=== PATIENT | female | born 1975 | race Caucasian/White ===

== ENCOUNTER → 2019-09-14 13:00 | Outpatient (CLI) | payer BC, SELFPAY ==
--- NOTE | ~2019-09-14 | XR_ITS ---
EXAMINATION: XR chest 2V EXAM DATE: 09/14/2019 13:30 INDICATION: Cough, fever. TECHNIQUE: Frontal and lateral projections of the chest obtained and reviewed. Comparison is made to prior examination from 09/25/2008. FINDINGS: The lungs are clear. There are no pleural effusions. The cardiomediastinal silhouette is within normal limits. There is no pneumothorax suspected. The bones and soft tissues are unremarkab le. IMPRESSION: No acute cardiopulmonary findings. Reviewed, dictated and finalized at location A. RAMMING COORDINATOR
== END ==
PROVIDERS: PCP Physician Assistant; Visit Provider Physician Assistant
DX: J22 Unspecified acute lower respiratory infection (principal)
CPT/HCPCS: 71046

== ENCOUNTER 2020-10-26 09:09 | Outpatient (CLI) | payer BC, SELFPAY ==
--- NOTE | ~2020-10-26 | MM_ITS ---
EXAMINATION: MM screening [facility] BI w lupillo HISTORY: Screening mammogram TECHNIQUE: Craniocaudal and mediolateral oblique 3-D tomosynthesis images were obtained and synthetic 2-D images were generated. CAD analysis was submitted and interpreted. COMPARISON: 11/27/2018, 10/23/2017, 10/13/2016 BREAST PARENCHYMAL COMPOSITION: The breasts are almost entirely fatty. FINDINGS: There is no evidence of suspicious mass, calcification, or architectural distortion to sugg est malignancy in either breast. There has been no suspicious interval change. IMPRESSION: 1. No mammographic evidence of malignancy. 2. Recommend routine screening mammography in one year. BI-RADS Category 1: Negative Reviewed, dictated and finalized at location A.
== END 2020-10-26 09:10 | disposition home or self-care (01) ==
LOC: ANHIMG 09:11
PROVIDERS: PCP Family Medicine; Visit Provider Nurse Practitioner
DX: Z12.31 Encounter for screening mammogram for malignant neoplasm of breast (principal)
CPT/HCPCS: 77063; 77067

== ENCOUNTER 2021-06-06 14:48 | Outpatient (RCR) | payer BC, SELFPAY ==
[2021-06-06 15:03] VITALS: BMI 34.7
[2021-06-06 15:08] VITALS: BMI 34.7
== END 2021-09-02 14:45 | disposition home or self-care (01) ==
LOC: ANHDMC 14:48
PROVIDERS: PCP Family Medicine; Visit Provider Physician Assistant
DX: E11.65 Type 2 diabetes mellitus with hyperglycemia (principal); Z71.3 Dietary counseling and surveillance
CPT/HCPCS: 97802

== ENCOUNTER 2021-07-25 08:02 | Outpatient (CLI) | payer BC, SELFPAY ==
--- NOTE | ~2021-07-25 | US_ITS ---
EXAMINATION: US thyroid EXAM DATE: 07/25/2021 08:43 INDICATION: Family history of thyroid cancer. TECHNIQUE: Multiple grayscale and Doppler images of the thyroid were obtained (by a technologist who performed the scan) and subsequently reviewed. Individual nodules and recommendations may be reporte d in accordance with TI-RADS system as designated by the 2017 ACR White Paper TI-RADS committee. The re is no prior study for comparison. FINDINGS: Right thyroid lobe measures 4.6 x 1.2 x 1.8 cm, the left measuring 4.5 x 1.0 x 1.3 cm. These dimensio ns are within normal size limits. Mildly heterogeneous thyroid parenchyma, several small thyroid cyst s. No solid nodule or follow-up indicated. IMPRESSION: 1. Unremarkable thyroid ultrasound exam. Reviewed, dictated and finalized at location A. ENGINEERING SUPERVISOR
== END 2021-07-25 08:03 | disposition home or self-care (01) ==
LOC: ANHIMG 08:06
PROVIDERS: PCP Family Medicine; Visit Provider Nurse Practitioner
DX: E04.9 Nontoxic goiter, unspecified (principal); Z80.8 Family history of malignant neoplasm of other organs or systems
CPT/HCPCS: 76536

== ENCOUNTER 2022-02-12 09:15 | Outpatient (CLI) | payer BC, SELFPAY ==
--- NOTE | ~2022-02-12 | MM_ITS ---
EXAMINATION: MM screening [facility] BI w lupillo HISTORY: Screening TECHNIQUE: Craniocaudal and mediolateral oblique 3-D tomosynthesis images were obtained and synthetic 2-D images were generated. CAD analysis was submitted and interpreted. COMPARISON: Comparison to multiple prior studies sequentially, with oldest reviewed study dated 08/24. BREAST PARENCHYMAL COMPOSITION: Breast composed of scattered areas of fibroglandular density FINDINGS: There is no evidence of suspicious mass, calcification, or architectural distortion to sugg est malignancy in either breast. There has been no suspicious interval change. IMPRESSION: 1. No mammographic evidence of malignancy. 2. Recommend routine screening mammography in one year. BI-RADS Category 1: Negative Reviewed, dictated and finalized at location L.
== END 2022-02-12 09:16 | disposition home or self-care (01) ==
LOC: ANHIMG 09:16
PROVIDERS: PCP Family Medicine; Visit Provider Nurse Practitioner
DX: Z12.31 Encounter for screening mammogram for malignant neoplasm of breast (principal)
CPT/HCPCS: 77063; 77067

== ENCOUNTER 2022-03-14 06:59 | Outpatient (CLI) | payer BC, SELFPAY ==
--- NOTE | ~2022-03-14 | XR_ITS ---
EXAMINATION: XR chest 2V 03/14/2022 08:01 INDICATION: Cough. Covid. Shortness of breath. PROCEDURE: 2 view chest COMPARISON: 09/14/2019 FINDINGS: The lungs are clear. The cardiomediastinal silhouette is within normal limits. There are no pleural effusions. There is no pneumothorax suspected. IMPRESSION: 1: NO ACUTE CARDIOPULMONARY DISEASE. Reviewed, dictated and finalized at location B.
== END 2022-03-14 07:00 | disposition home or self-care (01) ==
PROVIDERS: PCP Family Medicine; Visit Provider Physician Assistant
DX: R05.9 Cough, unspecified (principal)
CPT/HCPCS: 71046

== ENCOUNTER → 2022-06-10 08:53 | Outpatient (CLI) | payer BC, SELFPAY ==
--- NOTE | ~2022-06-10 | CT_ITS ---
EXAMINATION: CT sinus wo con DATE: 06/10/2022 09:09 INDICATION: Chronic sinusitis. Persistent cough. TECHNIQUE: Computed tomography (CT) of the paranasal sinuses was performed without contrast. Iterativ e reconstruction technique was employed. Exam dose: 275.58 mGy-cm total exam DLP. COMPARISON: 03/05/2006 CT sinuses FINDINGS: There is leftward bowing of the nasal septum. Intralamellar cell of both middle nasal turbinates. Moderate asymmetric soft tissue swelling of the l eft middle and inferior nasal turbinates compared to the right side. The ostiomeatal units are patent bilaterally. The frontal sinuses and ethmoid air cells are normally developed and aerated. The right maxillary sin us is clear as well. Slight mucoperiosteal thickening along the lower medial wall of the left maxillary sinus. Slight mucoperiosteal thickening along the anterior medial aspect of left sphenoid sinus. Prominent m ucoperiosteal thickening of the mid and lower aspect of the right sphenoid sinus. The mastoid air cells are well-developed and aerated bilaterally. Middle and inner ear apparatus appear normal bilaterally. IMPRESSION: [Leftward bowing of nasal septum Intralamellar cell of both middle nasal turbinates Minimal mucoperiosteal thickening of the left maxillary and left sphenoid sinuses and moderately prom inent mucoperiosteal thickening of the right sphenoid sinus The remaining paranasal sinuses and the ostiomeatal units and mastoid air cells are well-developed an d aerated Reviewed, dictated and finalized at Location A. Reviewed, dictated and finalized at location A. STRIAL MAINTENANCE INSTRUCTOR IMPRESSION: [Leftward bowing of nasal septum Intralamellar cell of both middle nasal turbinates Minimal mucoperiosteal thickening of the left maxillary and left sphenoid sinus es and moderately prominent mucoperiosteal thickening of the right sphenoid sin us The remaining paranasal sinuses and the ostiomeatal units and mastoid air cells are well-developed and aerated
== END ==
PROVIDERS: PCP Physician Assistant; Visit Provider Physician Assistant
DX: J32.9 Chronic sinusitis, unspecified (principal); J34.2 Deviated nasal septum
CPT/HCPCS: 70486

== ENCOUNTER → 2023-06-08 13:43 | Outpatient (CLI) | payer BC, SELFPAY ==
--- NOTE | ~2023-06-08 | MM_ITS ---
EXAMINATION: MM screening [facility] BI w lupillo HISTORY: Screening mammogram TECHNIQUE: Craniocaudal and mediolateral oblique 3-D tomosynthesis images were obtained and synthetic 2-D images were generated. CAD analysis was submitted and interpreted. COMPARISON: 02/12/2022, 10/26/2020, 11/27/2018 BREAST PARENCHYMAL COMPOSITION: There are scattered areas of fibroglandular density. FINDINGS: No suspicious mass, calcification, or architectural distortion are identified in either tiffany ast to suggest malignancy. There has been no suspicious interval change. IMPRESSION: 1. No mammographic evidence of malignancy. 2. Recommend routine screening mammography in one year. BI-RADS Category 1: Negative Reviewed, dictated and finalized at location A. YARN SORTER
== END ==
PROVIDERS: PCP Nurse Practitioner; Visit Provider Nurse Practitioner
DX: Z12.31 Encounter for screening mammogram for malignant neoplasm of breast (principal)
CPT/HCPCS: 77063; 77067

== ENCOUNTER 2024-06-16 15:57 | Outpatient (CLI) | payer BC, SELFPAY ==
--- NOTE | ~2024-06-16 | MM_ITS ---
EXAMINATION: MM screening [facility] BI w lupillo HISTORY: Screening mammogram TECHNIQUE: Craniocaudal and mediolateral oblique 3-D tomosynthesis images were obtained and synthetic 2-D images were generated. CAD analysis was submitted and interpreted. COMPARISON: 06/08/2023, 02/12/2022, 10/26/2020 BREAST PARENCHYMAL COMPOSITION:Not Dense. There are scattered areas of fibroglandular density. FINDINGS: No suspicious mass, calcification, or architectural distortion are identified in either tiffany ast to suggest malignancy. There has been no suspicious interval change. IMPRESSION: No mammographic evidence of malignancy. Recommend routine screening mammography in one year. BI-RADS Category 1: Negative Reviewed, dictated and finalized at location . L FENCE ERECTOR
== END 2024-06-16 15:58 | disposition home or self-care (01) ==
PROVIDERS: PCP Family Medicine; Visit Provider Nurse Practitioner
DX: Z12.31 Encounter for screening mammogram for malignant neoplasm of breast (principal)
CPT/HCPCS: 77063; 77067

== ENCOUNTER 2024-09-15 16:42 | Outpatient (CLI) | payer BC, SELFPAY ==
--- NOTE | ~2024-09-15 | XR_ITS ---
EXAMINATION: XR chest 2V 09/15/2024 16:55 INDICATION: Dyspnea PROCEDURE: 2 view chest COMPARISON: 03/14/2022 FINDINGS: The lungs are clear. The cardiomediastinal silhouette is within normal limits. There are no pleural effusions. There is no pneumothorax suspected. IMPRESSION: 1: NO ACUTE CARDIOPULMONARY DISEASE. Reviewed, dictated and finalized at location B. ARCHITECT
--- OUTSIDE RECORDS SUMMARY | 2024-09-15 16:49 | XMS_ITS | Referral Summary ---
Author Organization [facility] Address [address] [place] [address] Care Team Providers Care Information Security Director Name Role Phone Low Kaplan MD Primary Care Provider [phone] Source Comments [facility],non-owned Affiliates and Associated Physician Practices is amultiple site organization consisting of ambulatory clinics and hospital sitesin [place], [place]. This disclosure is being madepursuant to the Care Everywhere program and may not contain all information available regarding this patient. Last updated 18.[facility] Allergies Active Allergy Reactions Criticality Noted Date Comments Augmentin 01/24/2016 rash Penicillins 01/15/2016 Noted on allergy testing Sulfa Drugs Dizziness 11/08/2017 Medications * Be aware that medications may not be up to date on this document. Alwaysverify current medications with the patient. Medication Sig Dispensed Refills Start Date End Date Status cetirizine (ZYRTEC) 10 MG tablet Take 1 Tab by mouth once daily Active chlorthalidone (HYGROTON) 50 MG tablet Take 50 mg by mouth once daily 11/10/2015 Active EPINEPHrine (EPIPEN) 0.3 MG/0.3ML auto-injector pen 10/15/2015 Active fluticasone propionate (FLONASE) 50 MCG/ACT nasal spray [place] into the nose Active irbesartan (AVAPRO) 75 MG tablet Take 300 mg by mouth once daily Active norethindrone-ethin yl estradiol (JUNEL 08/15) 1-20 MG-MCG tablet Take 1 Tab by mouth once daily 11/30/2015 Active omeprazole (PRILOSEC) 40 MG capsule Take 40 mg by mouth once daily Reported on 07/22/2016 11/08/2015 Active Probiotic Product (ACIDOPHILUS/GOAT MILK) CAPS Take 1 Cap by mouth once daily Active Vitamin D3 (CHOLECALCIFEROL) 2000 UNITS capsule Take 2,000 Units by mouth once daily Active Ascorbic Acid (VITAMIN C ADULT GUMMIES) 125 MG CHEW Take 2 Tabs by mouth once daily Active Multiple Vitamins-Iron (MULTIVITAMIN/IRON PO) Reported on 11/03/2016 Active Olopatadine HCl 0.7 % Reported on 11/03/2016 Active cyanocobalamin (VITAMIN B-12) 100 MCG tablet Take 100 mcg by mouth once daily Active Lancets Misc. (ACCU-CHEK FASTCLIX LANCET) KIT Use 1 Each as directed 1 Kit 1 11/07/2016 Active Additional Information Patient not taking.Reported on 09/11/2019 blood glucose (ACCU-CHEK CAITY PLUS) test strip Use 1 Strip twice daily, before 1 meal & at bedtime. 50 Strip 1 11/07/2016 Active metFORMIN ER 24hr (GLUCOPHAGE XR) 500 MG tablet 11/13/2016 Active LOSARTAN POTASSIUM PO Active Active Problems Problem Noted Date Diagnosed Date Rectovaginal fistula 01/15/2016 Immunizations Name Administration Dates Next Due INFLUENZA VACCINE 05/04/2018 Social History Tobacco Use Types Packs/Day Years Used Date Smoking Tobacco: Never Smokeless Tobacco: Never Tobacco Cessation:Counseling Given: Yes Alcohol Use Standard Drinks/Week Comments Yes 0 (1 standard drink = 0.6 oz pur e alcohol) seldom Sex and Gender Information Value Date Recorded Sex Assigned at Not on file Gender Identity Not on file Sexual Orientation Not on file Last Filed Vital Signs Vital Sign Reading Time Taken Comments Blood Pressure 128/80 09/11/2019 10:38 AM PRODUCE WRAPPER Pulse 111 09/11/2019 10:38 AM PRODUCE WRAPPER Temperature 37.6 C (99.7 F) 09/11/2019 10:38 AM PRODUCE WRAPPER Respiratory Rate 16 09/11/2019 10:38 AM PRODUCE WRAPPER Oxygen Saturation 98% 09/11/2019 10:38 AM PRODUCE WRAPPER Inhaled Oxygen Concentration - - Weight 113.9 kg (251 lb) 09/11/2019 10:38 AM PRODUCE WRAPPER Height 172.7 cm (5' 8 ) 09/11/2019 10:38 AM PRODUCE WRAPPER Body Mass Index 38.16 09/11/2019 10:38 AM PRODUCE WRAPPER Functional Status Functional Status Response Date of Assess ment Is person deaf or have serious hearing difficult y? No 11/06/2016 Is person blind or have serious difficulty seein g? No 11/06/2016 Does person have serious dif ficulty walking/climbing stairs? No 11/06/2016 Does person have difficulty dressing/bathing? No 11/06/2016 Does person have difficulty doing errands alone? No 11/06/2016 Cognitive Status Response Date of Assessm ent Does person have difficulty concentrating/remembering/making decisions? No 11/06/2016 Plan of Treatment Not on file Procedures Procedure Name Priority Date/Time Associated Diagnosis Comments HEMOGLOBIN A1C Routine 11/07/2016 5:42 AM CDT Rectovaginal fistula from Last 3 Months or Most Recently Relevant to Health Maintenance Results * (ABNORMAL) HEMOGLOBIN A1C (11/07/2016 5:42 AM CDT) Hemoglobin A1c 6.4(H) 4.2 - 6.3 % 11/07/2016 6:52 AM CDT [facility] Estimated Average Glucose 137 mg/dL 11/07/2016 6:52 AM CDT [facility] Whole Blood BLOOD SPECIMEN WITH EDTA / Unknown Lab Venipuncture / Unknown 11/07/2016 5:42 AM CDT 11/07/2016 6:22 AM CDT Munir Chilel MD LAB - CHEMISTRY [facility] Organization Address City/State/[facility] Co de Phone Number [facility] [address] [place] [address] from Last 3 Months or Most Recently Relevant to Health Maintenance Advance Directives * Full Code (Latest Code Status on File) Date Activated Date Inactivated Comments 11/06/2016 2:37 PM 11/07/2016 4:42 PM * Full Code Date Activated Date Inactivated Comments 07/24/2016 3:34 PM 07/25/2016 5:36 PM Care Teams Information Security Director Relationship Specialty Start Date End Date Low Kaplan MD [address] [place] [address] PCP - General Family Medicine 01/23/16
--- OUTSIDE RECORDS SUMMARY | 2024-09-15 16:49 | XMS_ITS | Clinical Summary ---
Author Organization [facility] Address [address] [place] [address] Care Team Providers Care Field Artillery Senior Sergeant Name Role Phone Low Kaplan MD Primary Care Provider [phone] Source Comments [facility],non-owned Affiliates and Associated Physician Practices is amultiple site organization consisting of ambulatory clinics and hospital sitesin [place], [place], [place] and [place]. This disclosure is being madepursuant to the Care Everywhere program and may not contain all information available regarding this patient. Last updated 18.[facility] Allergies Active Allergy Reactions Criticality Noted Date [...] fluticasone propionate (FLONASE) 50 MCG/ACT nasal spray [place] [address] [place] into the nose Active irbesartan (AVAPRO) 75 [...] Administration Dates Next Due INFLUENZA VACCINE 05/04/2018 Family History Medical History Relation Name Comments Diabetes Other 1 Hypertension Other 2 Endometriosis Other 3 Depression Other 4 Relation Name Status Comments Other 1 Other 2 Other 3 Other 4 Social History Tobacco Use Types Packs/Day Years [...] Comments Blood Pressure 128/80 09/11/2019 10:38 AM REELING MACHINE SETUP OPERATOR Pulse 111 09/11/2019 10:38 AM REELING MACHINE SETUP OPERATOR Temperature 37.6 C (99.7 F) 09/11/2019 10:38 AM REELING MACHINE SETUP OPERATOR Respiratory Rate 16 09/11/2019 10:38 AM REELING MACHINE SETUP OPERATOR Oxygen Saturation 98% 09/11/2019 10:38 AM REELING MACHINE SETUP OPERATOR Inhaled Oxygen Concentration - - Weight 113.9 kg (251 lb) 09/11/2019 10:38 AM REELING MACHINE SETUP OPERATOR Height 172.7 cm (5' 8 ) 09/11/2019 10:38 AM REELING MACHINE SETUP OPERATOR Body Mass Index 38.16 09/11/2019 10:38 AM REELING MACHINE SETUP OPERATOR Plan of Treatment Health Maintenance Due Date Last Done Comments COLOGUARD (AGES 45-75) - COLON CA SCREENING 1975 COLON MONITORING 1975 COLONOSCOPY - COLON CA SCREENING 1975 CT COLONOGRAPHY - COLON CA SCREENING 1975 Colorectal Cancer Screening 1975 FIT - COLON CA SCREENING 1975 FLEX SIG - COLON CA SCREENING 1975 LIPID TESTING 1975 MAMMOGRAM 1975 PAP SMEAR 1975 HIV SCREENING 1990 HEPATITIS C SCREENING 04/20/1993 DTAP/TDAP/TD VACCINES (1 - Tdap) 1994 HEPATITIS B VACCINE (1 of 3 - 19+ 3-dose series) 1994 SCREENING FOR DIABETES 11/08/2019 7, 11/07/2016, 11/07/2016, Additional history exists COVID-19 VACCINE ( - 2023- season) 2024 INFLUENZA VACCINE (#1) 2024 8, 05/04/2017, 05/07/2016, Additional history exists DEPRESSION SCREENING 07/27/2024 ZOSTER VACCINE (1 of 2) 2025 HIB VACCINE Aged Out No longer eligi ble based on patient's age to complete this topic HPV VACCINE Aged Out No longer eligi ble based on patient's age to complete this topic MENINGOCOCCAL (Group B) VACCINE Aged Out No longer eligible based on patient's age to complete this topic MENINGOCOCCAL VACCINE Aged Out No bi becky eligible based on patient's age to complete this topic PNEUMOCOCCAL VACCINE Aged Out No long er eligible based on patient's age to complete this topic Procedures Procedure Name Priority Date/Time Associated Diagnosis Comments HEMOGLOBIN A1C Routine 11/07/2016 5:42 AM CDT Rectovaginal fistula from Last 3 Months or Most Recently Relevant to Health Maintenance Results * (ABNORMAL) HEMOGLOBIN A1C (11/07/2016 5:42 AM CDT) Hemoglobin A1c 6.4(H) 4.2 - 6.3 % 11/07/2016 6:52 AM CDT [facility] Estimated Average Glucose 137 mg/dL 11/07/2016 6:52 AM CDT [facility] Whole Blood BLOOD SPECIMEN WITH EDTA / Unknown Lab Venipuncture / Unknown 11/07/2016 5:42 AM CDT 11/07/2016 6:22 AM CDT Munir Chilel MD LAB - CHEMISTRY JULIANNE LOVE [facility] [address] [place] [address] from Last 3 Months or Most Recently Relevant to Health Maintenance Advance Directives * Full Code (Latest Code Status on File) Date Activated Date Inactivated Comments 11/06/2016 2:37 PM 11/07/2016 4:42 PM * Full Code Date Activated Date Inactivated Comments 07/24/2016 3:34 PM 07/25/2016 5:36 PM Care Teams Field Artillery Senior Sergeant Relationship Specialty Start Date End Date Low Kaplan MD [address] [place] [address] PCP - General Family Medicine 01/23/16
--- OUTSIDE RECORDS SUMMARY | 2024-09-15 16:49 | XMS_ITS ---
Author Organization [facility] Address [address] [place] [address] Care Team Providers Care Sheriff Deputy Name Role Phone Umm Burton Primary Care Provider Lucy Ang Unavailable [phone] Vinod Munoz [phone] REASON FOR VISIT SCIT (Aeroallergen) Encounters Encounter Location Date Provider Diagnosis [facility] [address] [place] [address] 09/13/2024 Vinod Munoz Plan Of Treatment Next Appt Details Provider Name:Vinod Munoz , 09/19/2024 04:40:00 PM, [address], [place], [address], Provider Name:Vinod Munoz , 09/27/2024 04:40:00 PM, [address], [place], [address], Provider Name:Cuoc liao, 01/12/2025 10:00:00 AM, [address], [place], [address], Progress Notes * Umm WILKERSON SDOB:1975 (49 yo F)Acc No.[id number]:09/13/2024 SCIT-Aeroallergen Patient: Umm HOPSON Provider: Juan Munoz MD :1975 A ge:49 Y S ex:Female Date:09/13/2024 Address:[facility] [address], [address] [phone] Pcp:Umm Burton Subjective: * Chief Complaints: * 1 . SCIT (Aeroallergen). * Medical History: Objective: * Vitals: Assessment: Plan: * Treatment: * Billing Information: * Visit Code: * Procedure Codes: * Electronic signature of Jaime Munoz MD, FAAAAI on 09/15/2024 at 04:49 PM BUSINESS ADVISOR Sign off status: Pending * Provider: Juan Munoz MD Date: 09/13/2024 Generated for Belia hernandez/Luis/Esteritting on: 09/15/2024 04:49 PM BUSINESS ADVISOR
--- OUTSIDE RECORDS SUMMARY | 2024-09-15 16:49 | XMS_ITS | Patient Health Summary ---
Author Organization [facility] Address [address] [place] [address] Care Team Providers Care Medical Claims Processor Name Role Phone Low Kaplan MD Primary Care Provider [phone] Note from [facility],non-owned Affiliates and Associated Physician Practices is amultiple site organization consisting of ambulatory clinics and hospital sitesin [place], [place], [place] and [place]. This disclosure is being madepursuant to the Care Everywhere program and may not contain all information available regarding this patient. Last updated 18.[facility] Allergies * Augmentin(rash) * Penicillins(Noted on allergy testing) * Sulfa Drugs(Dizziness) Medications * Be aware that medications may not be up to date on this document. Alwaysverify current medications with the patient. * cetirizine (ZYRTEC) 10 MG tablet Take 1 Tab by mouth once daily * chlorthalidone (HYGROTON) 50 MG tablet(Started 11/10/2015) Take 50 mg by mouth once daily * EPINEPHrine (EPIPEN) 0.3 MG/0.3ML auto-injector pen(Started 10/15/2015) * fluticasone propionate (FLONASE) 50 MCG/ACT nasal spray [place] 1 [place] into the nose * irbesartan (AVAPRO) 75 MG tablet Take 300 mg by mouth once daily * norethindrone-ethinyl estradiol (JUNEL 08/15) 1-20 MG-MCG tablet(Started 11/30/2015) Take 1 Tab by mouth once daily * omeprazole (PRILOSEC) 40 MG capsule(Started 11/08/2015) Take 40 mg by mouth once daily Reported on 07/22/2016 * Probiotic Product (ACIDOPHILUS/GOAT MILK) CAPS Take 1 Cap by mouth once daily * Vitamin D3 (CHOLECALCIFEROL) 2000 UNITS capsule Take 2,000 Units by mouth once daily * Ascorbic Acid (VITAMIN C ADULT GUMMIES) 125 MG CHEW Take 2 Tabs by mouth once daily * Multiple Vitamins-Iron (MULTIVITAMIN/IRON PO) Reported on 11/03/2016 * Olopatadine HCl 0.7 % Reported on 11/03/2016 * cyanocobalamin (VITAMIN B-12) 100 MCG tablet Take 100 mcg by mouth once daily * Lancets Misc. (ACCU-CHEK FASTCLIX LANCET) KIT(Started 11/07/2016) Use 1 Each as directed 1 refill remaining * blood glucose (ACCU-CHEK CAITY PLUS) test strip(Started 11/07/2016) Use 1 Strip twice daily, before 1 meal & at bedtime. 1 refill remaining * metFORMIN ER 24hr (GLUCOPHAGE XR) 500 MG tablet(Started 11/13/2016) * LOSARTAN POTASSIUM PO Active Problems Problem Noted Date Diagnosed Date Rectovaginal fistula 01/15/2016 Immunizations * INFLUENZA VACCINE(Given 05/04/2018) Social History Tobacco Use Types Packs/Day Years [...] Comments Blood Pressure 128/80 09/11/2019 10:38 AM DIRECTOR OF ANALYTICAL DEVELOPMENT Pulse 111 09/11/2019 10:38 AM DIRECTOR OF ANALYTICAL DEVELOPMENT Temperature 37.6 C (99.7 F) 09/11/2019 10:38 AM DIRECTOR OF ANALYTICAL DEVELOPMENT Respiratory Rate 16 09/11/2019 10:38 AM DIRECTOR OF ANALYTICAL DEVELOPMENT Oxygen Saturation 98% 09/11/2019 10:38 AM DIRECTOR OF ANALYTICAL DEVELOPMENT Inhaled Oxygen Concentration - - Weight 113.9 kg (251 lb) 09/11/2019 10:38 AM DIRECTOR OF ANALYTICAL DEVELOPMENT Height 172.7 cm (5' 8 ) 09/11/2019 10:38 AM DIRECTOR OF ANALYTICAL DEVELOPMENT Body Mass Index 38.16 09/11/2019 10:38 AM DIRECTOR OF ANALYTICAL DEVELOPMENT Procedures * STREP A SCREEN - POINT OF CARE (AMB) STL(Performed 09/11/2019) Performed for Influenza A * INFLUENZA A+B - POINT OF CARE (AMB)(Performed 09/11/2019) Performed for Influenza A * STREP A SCREEN - POINT OF CARE (AMB) STL(Performed 11/08/2017) Performed for Strep throat * CULTURE AEROBIC(Performed 11/24/2016) * CARDIAC RHYTHM STRIP ORDER(Performed 11/11/2016) * GLUCOSE - POINT OF CARE(Performed 11/07/2016) * URINALYSIS REFLEX MICROSCOPIC REFLEX CULTURE(Performed 11/07/2016) Performed for Creatinine elevation * CULTURE URINE(Performed 11/07/2016) Performed for Creatinine elevation * GLUCOSE - POINT OF CARE(Performed 11/07/2016) * ENDOTRACHEAL TUBE NOTE(Performed 11/07/2016) * BASIC METABOLIC PANEL (CALCIUM TOTAL)(Performed 11/07/2016) Performed for Creatinine elevation * HEMOGLOBIN A1C(Performed 11/07/2016) Performed for Rectovaginal fistula * BASIC METABOLIC PANEL (CALCIUM TOTAL)(Performed 11/06/2016) Performed for Hyperglycemia * GLUCOSE - POINT OF CARE(Performed 11/06/2016) * GLUCOSE - POINT OF CARE(Performed 11/06/2016) * GLUCOSE - POINT OF CARE(Performed 11/06/2016) * GLUCOSE - POINT OF CARE(Performed 11/06/2016) * PATHOLOGY TISSUE EXAM (STL)(Performed 11/06/2016) Performed for Rectovaginal fistula * REPAIR RECTOVAGINAL FISTULA(Performed 11/06/2016) Performed for Rectovaginal fistula * GLUCOSE - POINT OF CARE(Performed 11/06/2016) * CBC W/O DIFFERENTIAL(Performed 11/06/2016) Performed for Preoperative examination * HCG URINE QUALITATIVE - POINT OF CARE(Performed 11/06/2016) Performed for Preoperative examination * CBC W AUTO DIFFERENTIAL(Performed 10/13/2016) * HEMOGLOBIN A1C(Performed 10/13/2016) * BASIC METABOLIC PANEL (CALCIUM TOTAL)(Performed 10/13/2016) * CARDIAC RHYTHM STRIP ORDER(Performed 07/26/2016) * GENTAMICIN LEVEL RANDOM(Performed 07/25/2016) * ENDOTRACHEAL TUBE NOTE(Performed 07/24/2016) * PATHOLOGY TISSUE EXAM (STL)(Performed 07/24/2016) Performed for Rectovaginal fistula * REPAIR RECTOVAGINAL FISTULA(Performed 07/24/2016) Performed for Rectovaginal fistula * CBC W/O DIFFERENTIAL(Performed 07/24/2016) Performed for Pre-op testing * HCG URINE QUALITATIVE - POINT OF CARE(Performed 07/24/2016) * PATHOLOGY/GENETICS HISTORICAL-ONBASE(Performed 07/24/2016) * CBC W/O DIFFERENTIAL(Performed 07/15/2016) * CARDIAC RHYTHM STRIP ORDER(Performed 01/31/2016) * LAB RESULTS ORDER(Performed 01/31/2016) * PATHOLOGY TISSUE EXAM (STL)(Performed 01/24/2016) Performed for Rectovaginal fistula * REPAIR RECTOVAGINAL FISTULA(Performed 01/24/2016) Performed for Rectovaginal fistula * EXAM UNDER ANESTHESIA(Performed 01/24/2016) Performed for Rectovaginal fistula * CBC W/O DIFFERENTIAL(Performed 01/24/2016) Performed for Preop examination * HCG URINE QUALITATIVE - POINT OF CARE(Performed 01/24/2016) * PATHOLOGY/GENETICS HISTORICAL-ONBASE(Performed 01/24/2016) * LAB HISTORICAL RESULTS-ONBASE(Performed 01/24/2016) * CBC W AUTO DIFFERENTIAL(Performed 01/01/2016) Results * STREP A SCREEN - POINT OF CARE (AMB) STL (09/11/2019) Only the most recent of2 resultswithin the time period is included. Strep A Rapid POCT Negative Negative Strep A Internal Control Present Lot # [id number] Expiration Date 12/24/2020 Throat ENTIRE THROAT (SURFACE REGION OF NECK) / Unknown 09/11/2019 Yuri Walker APRN-TESTING PROJECTS ADMINISTRATOR LAB - POINT OF CARE ORDERABLES * (ABNORMAL) INFLUENZA A+B - POINT OF CARE (AMB) (09/11/2019) Influenza A Antigen Rapid Positive(A) Negative Influenza B Antigen Rapid Negative Negative Influenza Internal Control positive NEGATIVE - POSITIVE Influenza Lot Number [id number] Influenza Expiration Date 06/08/2021 Other NASOPHARYNGEAL SWAB / Unknown 09/11/2019 Welch L Klostermann SPRAY MAKER-TESTING PROJECTS ADMINISTRATOR LAB - POINT OF CARE ORDERABLES * CULTURE AEROBIC (11/24/2016) Culture Aerobic SEE NOTE [facility]) Comment: CULTURE, AEROBIC BACTERIA WITH GRAM STAIN MICRO NUMBER: [id number] TEST STATUS: FINAL SPECIMEN SOURCE: LESION SPECIMEN QUALITY: ADEQUATE GRAM STAIN: Moderate epithelial cells Few White blood cells seen Many Gram negative bacilli RESULT: A mix of non-predominating organisms of questionable significance was recovered on culture and not further identified. (Note: Growth did not detect the presence of S. Aureus, beta-hemolytic Streptococci or P. Aeruginosa). REPORT COMMENT: SPECIMEN TYPE->LESION Test Performed at: [facility] [id number] CYRIL UNGER MD Lesion 11/24/2016 11/26/2016 1:2 8 AM CDT Narrative [facility]) - 11/28/2016 7:00 AM CDT Specimen Type->Lesion Kailee Tijerina MD LAB - MICROBIOLOGY O RDERABLES [facility]) * CARDIAC RHYTHM STRIP ORDER (11/11/2016 8:57 PM CDT) Only the most recent of3 resultswithin the time period is included. Narrative 11/11/2016 8:57 PM CDT Ordered by an unspecified provider. Scanned Document CARDIAC SERVICES ORD ERABLES * (ABNORMAL) GLUCOSE - POINT OF CARE (11/07/2016 11:43 AM CDT) Only the most recent of7 resultswithin the time period is included. Glucose WB/POC 151(H) 70 - 106 mg/dL 11/07/2016 11:58 AM CDT [facility] Blood BLOOD SPECIMEN / Unknown 11/07/2016 11:43 AM CDT 11/07/2016 11:58 AM CDT Kailee Tijerina MD LAB - POINT OF CARE ORDERABLES Performing Organization Address City/[facility]/ZIP Co de Phone Number [facility] [address] [place] [address] * (ABNORMAL) URINALYSIS ROUTINE W/REFLEX TO CULTURE (11/07/2016 11:11 AM [facility]) Color UA Sherri(A) Straw, Yellow, Dark Yellow 11/07/2016 11:34 AM [facility] Clarity UA Cloudy 11/07/2016 11:34 AM [facility] Specific [place] UA 1.016 1.005 - 1.030 11/07/2016 11:34 AM [facility] pH UA 5.0 5.0 - 8.0 pH 11/07/2016 11:34 AM [facility] Protein UA Trace(A) Negative 11/07/2016 11:34 AM [facility] Blood UA 3+(A) Negative 11/07/2016 11:34 AM [facility] Leukocyte UA 2+(A) Negative 11/07/2016 11:34 AM [facility] Nitrite UA Negative Negative 11/07/2016 11:34 AM [facility] Glucose UA Negative Negative 11/07/2016 11:34 AM [facility] Ketone UA Negative Negative 11/07/2016 11:34 AM [facility] Bilirubin UA Negative Negative 11/07/2016 11:34 AM [facility] Urobilinogen UA 0.2 0.1 - 1.0 EU/dL 11/07/2016 11:34 AM [facility] WBC UA Auto 20-50(A) 0-2, 2-5 # /hpf 11/07/2016 11:34 AM [facility] RBC UA Auto >100(A) 0-2, 2-5 # /hpf 11/07/2016 11:34 AM [facility] Epithelial Cell UA Auto 0-2 0-2, 2-5 # /hpf 11/07/2016 11:34 AM [facility] Hyaline Casts UA Auto 2-5(A) 0 - 2 #/lpf 11/07/2016 11:34 AM [facility] Reflex Status Culture to follow 11/07/2016 11:34 AM [facility] Urine URINE SPECIMEN OBTAINED BY CLEAN CATCH PROCEDURE / Unknown Collection / Unknown 11/07/2016 11:11 AM CDT 11/07/2016 11:26 AM CDT Marcela Gama MD LAB - URINALYSIS ORD ERABLES Performing Organization Address City/[facility]/ZIP Co de Phone Number [facility] [address] [place] [address] * CULTURE URINE (11/07/2016 11:11 AM CDT) Culture No growth (<1,000 CFU/mL) KENDELL 11/08/2016 12:57 PM CDT [facility] Urine URINE SPECIMEN OBTAINED BY CLEAN CATCH PROCEDURE / Unknown Collection / Unknown 11/07/2016 11:11 AM CDT 11/07/2016 11:26 AM CDT Marcela Gama MD LAB - MICROBIOLOGY O RDERABLES Performing Organization Address [facility] Co de Phone Number [facility] [address] [phone] * ENDOTRACHEAL TUBE NOTE (11/07/2016 6:40 AM CDT) Narrative Jignesh Phillips MD - 11/07/2016 6:40 AM CDT Tyrone Javier APRN-EXOTIC DANCER 11/06/2016 9:10 AM Endotracheal Tube Placement: Patient Location: OR Sedation: under general anesthesia. Indication for Airway Management: anesthesia. Pretreatment: 100% O2. Induction: standard IV Patient position: supine. Mask Ventilation: easy. Blade Type: Karlo Blade Size: 4 Laryngoscopy View: grade 1 (full cords) Intubation Adjuncts: stylet Device: endotracheal tube Placement: oral Tube type: cuff - inflated Tube Size (MM): 7 Depth of Insertion (CM): 23 Measured From: teeth Cuff volume (mL): 7 Cuff Inflated With: air Number of Attempts: 1. Placement Verified By: direct visualization, bilateral breath sounds, chest auscultation, CO2 monitor and CO2 detector Difficult Airway? No. Performed By: TYRONE JAVIER. Procedure Start Time: 11/06/2016 8:57 AM. Procedure End Time: 11/06/2016 8:58 AM. Procedure Total Time: 1. Jignesh Phillips MD GENERAL ANESTHESIA ORDERABLES * (ABNORMAL) HEMOGLOBIN A1C (11/07/2016 5:42 AM CDT) Only the most recent of2 resultswithin the time period is included. Pathologist [facility] Hemoglobin A1c 6.4(H) 4.2 - 6.3 % 11/07/2016 6:52 AM CDT [facility] Estimated Average Glucose 137 mg/dL 11/07/2016 6:52 AM T [facility] Whole Blood BLOOD SPECIMEN WITH EDTA / Unknown Lab Venipuncture / Unknown 11/07/2016 5:42 AM CDT 11/07/2016 6:22 AM CDT Munir Chilel MD LAB - CHEMISTRY JULIANNE LOVE [facility] Organization Address City/State/ZIP Co de Phone Number [facility] [address] [place], [place] [id number] * (ABNORMAL) BASIC METABOLIC PANEL (CALCIUM TOTAL) (11/07/2016 5:42 AM CDT) Only the most recent of3 resultswithin the time period is included. [facility] Glucose 161(H) 74 - 106 mg/dL 11/07/2016 6:50 AM [facility] Sodium 133(L) 136 - 145 mmol/L 11/07/2016 6:50 AM [facility] Potassium 3.7 3.5 - 5.1 mmol/L 11/07/2016 6:50 AM [facility] Chloride 99 98 - 107 mmol/L 11/07/2016 6:50 AM [facility] CO2 23 22 - 31 mmol/L 11/07/2016 6:50 AM [facility] Calcium 7.9(L) 8.5 - 10.1 mg/dL 11/07/2016 6:50 AM [facility] Anion Gap 11 8 - 16 mmol/L 11/07/2016 6:50 AM [facility] BUN 29(H) 7 - 21 mg/dL 11/07/2016 6:50 AM [facility] Creatinine 1.80(H) 0.50 - 1.30 mg/dL 11/07/2016 6:50 AM [facility] eGFR by MDRD 31(L) >60 mL/min/1.7 3m2 11/07/2016 6:50 AM CDT [facility] eGFR by MDRD 38(L) >60 mL/min/1.7 3m2 11/07/2016 6:50 AM CDT [facility] Blood BLOOD SPECIMEN / Unknown Lab Venipuncture / Unknown 11/07/2016 5:42 AM CDT 11/07/2016 6:22 AM CDT Low Walker MD LAB - CHEMISTRY JULIANNE LOVE [facility] [address] [place] [address] * GROSS + MICRO EXAM (STL) (11/06/2016 10:10 AM CDT) Only the most recent of3 resultswithin the time period is included. Case Report Surgical Pathology Report Case: [id number] Authorizing Provider: Kailee Tijerina MD Collected: 11/06/2016 10:10 AM Ordering Location: [facility] Received: 11/06/2016 02:36 PM Pathologist: Amanda Aparicio MD Specimen: Fistula, Fistula Tract 11/07/2016 2:09 PM CDT [facility] Final Diagnosis 1. Fistula tract, resection: -- Consistent with fistula tract with acute and chronic inflammation /[facility] 11/07/2016 2:09 PM CDT [facility] Gross Description Received in formalin in a container labeled Umm Sparks, fistula tract. The container holds multiple pink-reed and purple-reed tissue fragments measuring from 0.5 cm up to 2.5 cm. The specimen is grossly consistent with a disrupted fistula tract. The specimen is entirely submitted in a cassette labeled A1. DYT/me 11/07/2016 2:09 PM CDT [facility] Microscopic Description Sections reveal squamous mucosa with mixed acute and chronic inflammation, consistent with fistula formation. /[facility] 11/07/2016 2:09 PM CDT [facility] Disclaimer All histochemical and/or immunohistochemical results are interpreted with controls that demonstrate appropriate staining reactions before reporting results. Note on use of immunocytochemistry reagents: This test was developed and its performance characteristic determined by [facility], Department of Laboratory Medicine. It has not been cleared or approved by the U.S. Food and Drug Administration (FDA). The FDA has determined that such clearance or approval is not necessary. The test is used for clinical purpose. It should not be regarded as investigational or for research. This laboratory is certified to perform high complexity testing. 11/07/2016 2:09 PM CDT [facility] Embedded Images 11/07/2016 2:09 PM CDT [facility] Pathology/Cytolo gy SPECIMEN FROM FISTULA / Unknown 11/06/2016 10:10 AM CDT 11/06/2016 2:36 PM CDT Kailee Tijerina MD LAB - PATHOLOGY/CYTO LOGY ORDERABLES Performing Organization Address City/State/[facility] Co de Phone Number [facility] [address] [place] [address] * (ABNORMAL) CBC W/O DIFFERENTIAL (11/06/2016 8:21 AM CDT) Only the most recent of4 resultswithin the time period is included. WBC 9.8 4.4 - 10.7 x10E9/L 11/06/2016 8:34 AM CDT [facility] RBC 4.14 3.80 - 5.20 x10E12/L 11/06/2016 8:34 AM CDT [facility] Hemoglobin 11.4(L) 12.0 - 15.6 gm/dL 11/06/2016 8:34 AM CDT [facility] Hematocrit 33.6(L) 35.9 - 45.5 % 11/06/2016 8:34 AM CDT [facility] MCV 81.2 80.7 - 98.3 fl 11/06/2016 8:34 AM CDT [facility] MCH 27.5 26.7 - 34.0 pg 11/06/2016 8:34 AM CDT [facility] MCHC 33.9 30.8 - 35.9 gm/dL 11/06/2016 8:34 AM CDT [facility] Platelet Count 291 153 - 416 x10E9/L 11/06/2016 8:34 AM CDT [facility] RDW-CV 12.6 12.1 - 14.9 % 11/06/2016 8:34 AM CDT [facility] MPV 9.1(L) 9.4 - 12.9 fl 11/06/2016 8:34 AM CDT [facility] Blood BLOOD SPECIMEN / Unknown Venipuncture / Unknown 11/06/2016 8:21 AM CDT 11/06/2016 8:26 AM CDT Kailee Tijerina MD LAB - HEMATOLOGY ORD ERABLES Performing Organization Address City/[facility] Co de Phone Number [facility] [address] [place] [address] * HCG URINE QUALITATIVE - POINT OF CARE (IP) (11/06/2016 8:00 AM CDT) Only the most recent of3 resultswithin the time period is included. Pathologist [facility] HCG Qual Urine Negative Negative [facility] POCT TESTING QC Verified Yes Yes [facility] POC T TESTING Urine URINE / Unknown 11/06/2016 8 :00 AM CDT Kailee Tijerina MD LAB - POINT OF CARE ORDERABLES Performing Organization Address [facility] de Phone Number [facility] POCT TESTING [address] [place] [address] * CBC W AUTO DIFFERENTIAL (10/13/2016 3:51 PM CDT) Only the most recent of2 resultswithin the time period is included. Pathologist [facility] WBC 10.1 3.8 - 10.8 Thousand/u L [facility] ([facility]) RBC 4.34 3.80 - 5.10 Million/uL [facility]) Hemoglobin 12.0 11.7 - 15.5 g/dL [facility]) Hematocrit 35.7 35.0 - 45.0 % [facility] MCV 82.2 80.0 - 100.0 fL [facility]) MCH 27.6 27.0 - 33.0 pg [facility]) MCHC 33.6 32.0 - 36.0 g/dL [facility]) RDW-CV 13.1 11.0 - 15.0 % [facility]) Platelet 338 140 - 400 Thousand/u L [facility]) MPV 7.9 7.5 - 12.5 fL [facility] Neutrophils Absolute 6,403 1,500 - 7,800 cells/uL [facility] ([facility]) Lymphocyte Absolute Manual 2,808 850 - 3,900 cells/uL [facility] ([facility]) Monocytes Absolute 727 200 - 950 cells/uL [facility] (H) Eosinophils Absolute 131 15 - 500 cells/uL [facility] (H) Basophil Absolute Manual 30 0 - 200 cells/uL [facility] ([facility]) Neutrophils % 63.4 % [facility]) Lymphocytes % 27.8 % [facility] ([facility]) Monocytes % 7.2 % [facility] ([facility]) Eosinophils % 1.3 % [facility]) Basophil % 0.3 % [facility]) Comment: Test Performed at: [facility] [place] [address] [place] [address] ONEIDA BOJORQUEZ DO,MPH Blood specimen (specimen) BLOOD SPECIMEN / Unknown 10/13/2016 3:51 PM CDT 10/13/2016 3:52 PM CDT Kailee Tijerina MD LAB - HEMATOLOGY ORD ERABLES [facility] ([facility]) * GENTAMICIN LEVEL RANDOM (07/25/2016 2:32 AM DIRECTOR OF ANALYTICAL DEVELOPMENT) Gentamicin Random 3.9 ug/mL 07/25/2016 3:13 AM DIRECTOR OF ANALYTICAL DEVELOPMENT [facility] Blood BLOOD SPECIMEN / Unknown Lab Venipuncture / Unknown 07/25/2016 2:32 AM DIRECTOR OF ANALYTICAL DEVELOPMENT 07/25/2016 2:38 AM DIRECTOR OF ANALYTICAL DEVELOPMENT Kathrin KhanD LAB - CHEMISTR Y ORDERABLES [facility] [address] [place] [address] * PATHOLOGY/GENETICS HISTORICAL-ONBASE (07/24/2016) Only the most recent of2 resultswithin the time period is included. 07/24/2016 Historical Provider LAB - CHEMISTRY O RDERABLES [facility] [address] * LAB RESULTS ORDER (01/31/2016 8:06 PM CDT) Narrative 01/31/2016 8:06 PM CDT Ordered by an unspecified provider. Scanned Document LAB - THERAPEUTIC DR LA MONITORING ORDERABLES * LAB HISTORICAL RESULTS-ONBASE (01/24/2016) 01/24/2016 Narrative [facility] - 01/25/2016 8:56 AM CDT Historical Provider LAB - CHEMISTRY O RDERABLES Performing Organization Address [facility] Co de Phone Number [address] Care Teams Medical Claims Processor Relationship Specialty Start Date End Date Low Kaplan MD [address] [place] [address] PCP - General Family Medicine 01/23/16
--- OUTSIDE RECORDS SUMMARY | 2024-09-15 16:49 | XMS_ITS ---
Author Organization [facility] Address [address] [place] [address] Care Team Providers Care Law Reporter Name Role Phone Umm Burton Primary Care Provider UnavailLucy Harvey Unavailable [phone] Vinod Munoz Unavailable [phone] REASON FOR VISIT SCIT - Traditional Schedule Allergy immunotherapy Medications Medication SIG (Take, Route, Frequency, Duration) Notes Start Date End Date Status Albuterol Sulfate HFA 108 (90 Base) MCG/ACT 1 puff as needed Inhalation every 4 hrs for 30 days Active AeroChamber MV - use with inhaler for 30 days 09/06/2024 Active Ipratropium Randolph 0.06 % 2 spray(s) intranasally 4 times a day as needed for 30 day(s) Not-Taking Montelukast Sodium 10 MG TAKE 1 TABLET BY MOUTH DAILY for 90 Active OZEMPIC 8 MG/3 ML (2 MG DOSE) for 28 *Please review for potential replacement for e-prescription and drug interaction check* Not-Taking IPRATROPIUM BROMIDE NASAL 42 mcg/inh 2 spray(s) intranasally 4 times a day as needed for 30 day(s) Not-Taking MOMETASONE 100 MCG/INH DIRECTED INHALED 2 TIMES A DAY *Please review for potential replacement for e-prescription and drug interaction check* Not-Taking CONTROL PILL 1 TABLET BY MOUTH DAILY for 30 DAYS *Please review for potential replacement for e-prescription and drug interaction check* Not-Taking PROAIR HFA CFC FREE 90 MCG/INH 2 PUFF(S) INHALED QID, PRN *Please review for potential replacement for e-prescription and drug interaction check* Not-Taking OLOPATADINE HYDROCHLORIDE 665 MCG/INH 2 SPRAY(S) INTRANASALLY 2 TIMES A DAY for 30 DAY(S) *Please review for potential replacement for e-prescription and drug interaction check* Not-Taking FENOFIBRATE 160 mg 1 tab(s) orally once a day for 30 day(s) Not-Taking MONTELUKAST SODIUM 10 mg 1 tab(s) orally once a day for 90 days Not-Taking METFORMIN 500 mg 1 tab(s) orally 2 times a day for 30 day(s) Not-Taking LOSARTAN 50 mg 1 tab(s) orally once a day for 30 day(s) Not-Taking OZEMPIC 2 MG/3 ML (0.25 MG OR 0.5 MG DOSE) DIRECTED SUBCUTANEOUSLY ONCE A WEEK *Please review for potential replacement for e-prescription and drug interaction check* Not-Taking SULFAMETHOXAZOLE-TR IMETHOPRIM 800 mg-160 mg 1 tab(s) orally every 12 hours for 10 day(s) Not-Taking OZEMPIC (0.25 MG OR 0.5 MG DOSE) Not-Taking AZELASTINE NASAL 137 mcg/inh 1 spray(s) in each nostril 2 times a day Not-Taking EPIPEN 2-LANETTE 0.3 mg 0.3 mg intramuscularly once for 30 days Not-Taking RIZATRIPTAN 5 mg 1 tab(s) orally once a day Not-Taking metFORMIN HCl 500 MG 1 tab(s) orally 2 times a day for 30 day(s) Active Losartan Potassium 50 MG 1 tab(s) orally once a day for 30 day(s) Active Ozempic (0.25 or 0.5 MG/DOSE) *Please review and pick correct strength-formula tion from [employer] options. If intended option is not shown, discontinue and re-order from Quick Search* Active Azelastine HCl 137 MCG/SPRAY 1 spray(s) in each nostril 2 times a day for 30 day(s) 12/31/2023 Active Fenofibrate 160 MG 1 tab(s) orally once a day for 30 day(s) Active Sulfamethoxazole-Tr imethoprim 800-160 MG 1 tab(s) orally every 12 hours for 10 day(s) Active Rizatriptan Benzoate 5 MG 1 tab(s) orally once a day Active Azelastine HCl 137 MCG/SPRAY 1 spray(s) in each nostril 2 times a day Active Cetirizine HCl 10 MG 1 tab(s) orally once a day for 0 Active Fluticasone Propionate 50 MCG/ACT 2 spray(s) intranasally once a day for 30 day(s) Active Vitamin D3 50 MCG (2000 UT) 1 tab(s) orally once a day Active Omeprazole 20 MG 1 cap(s) orally once a day Active Avapro 300 MG 1 tab(s) orally once a day Active Chlorthalidone 50 MG 1 tab(s) orally once a day Not-Taking Vitamin B-12 1000 MCG 1 tab(s) orally once a day Active PROAIR HFA CFC free 90 mcg/inh 2 puff(s) inhaled QID, PRN Active AZELASTINE HYDROCHLORIDE NASAL 137 mcg/inh 1 spray(s) in each nostril 2 times a day for 30 days Active MONTELUKAST SODIUM 10 mg 1 tab(s) orally once a day Active AEROCHAMBER MDI SPACER N/A user with MDI inhalers by mouth q4-6 hours PRN Active MONTELUKAST SODIUM 10 mg 1 tab(s) orally once a day for 30 day(s) Active AVAPRO 300 mg 1 tab(s) orally once a day Active SIT (TRADITIONAL) variable per schedule SC per schedule for to be determined Active FLUTICASONE PROPIONATE 50 mcg/inh 2 spray(s) intranasally once a day for 30 day(s) Active CETIRIZINE HYDROCHLORIDE 10 mg 1 tab(s) orally once a day for 0 Active NASAL WASHES N/A as directed intranasally as needed for 30 Active VITAMIN B-12 1000 mcg 1 tab(s) orally once a day Active OMEPRAZOLE 20 mg 1 cap(s) orally once a day Active CHLORTHALIDONE 50 mg 1 tab(s) orally once a day Active VITAMIN D3 2000 intl units 2 tabs orally once a day Active EpiPen 2-Lanette 0.3 mg 0.3 mg intramuscularly once for 30 day(s) Active Encounters Encounter Location Date Provider Diagnosis [facility] [address] [place] [address] 09/12/2024 Vinod Munoz Allergic rhinitis du e to pollen J30.1 ; Allergic rhinitis due to animal (cat) (dog) hair and dander J30.81 ; Other allergic rhinitis J30.89 and Other chronic allergic conjunctivitis H10.45 Assessments Encounter Date Diagnosis (ICD Code) Assessment Notes Treatment Notes Treatment Clinical Notes Section Notes 09/12/2024 Allergic rhinitis due to pollen (ICD-10 - J30.1) 09/12/2024 Allergic rhinitis due to animal (cat) (dog) hair and dander (ICD-10 - J30.81) 09/12/2024 Other allergic rhinitis (ICD-10 - J30.89) 09/12/2024 Other chronic allergic conjunctivitis (ICD-10 - H10.45) Plan Of Treatment Next Appt Details Follow Up: 1 Week, Reason: Provider Name:Vinod Munoz , 09/19/2024 04:40:00 PM, 2022 [facility], [address], [address], Provider Name:Vinod Munoz , 09/27/2024 04:40:00 PM, 2022 [facility], [address], [address], Provider Name:Cuco Rivera Vinh liao, 01/12/2025 10:00:00 AM, 2022 [facility], [address], [address], Progress Notes * Umm WILKERSON SDOB:1975 (49 yo F)Acc No.[id number]:09/12/2024 SCIT-Aeroallergen Patient: Umm HOPSON Provider: Juan Munoz MD :1975 A ge:49 Y S ex:Female Date:09/12/2024 Address:[facility] [address], [facility] Pcp:Umm Burton Subjective: * Chief Complaints: * S CIT - Traditional Schedule Allergy immunotherapy * HPI: * Introduction: The patient is here for scheduled immunotherapy. Please see the attached specialty form regarding the specifics of the administration of these vaccines. As per our protocol, the must undergo a screening health questionnaire (medication changes, reaction(s) to last immunotherapy dose(s), current health status, ACT (if appropriate), self-injectable epinephrine on patient(?) and peak flow (if appropriate)). Also, the patient must wait in our office for 30 minutes after receiving the vaccine(s). Furthermore, every patient must have an epinephrine pen (self-injectable) with them at the time of administration--and carry if for the following 1.5 hours after they leave our office. The patient must also have taken their antihistamine the day of the injection, preferably 2 hours prior. The consent form for SCIT (subcutaneous immunotherapy) is on file. * Medical History: * Surgical History: * Hospitalization/Major Diagno stic Procedure: * Medications: T akingEpiPen 2-Lanette 0.3 mg kit 0.3 mg intramuscularly once EpiPen 2-Lanette 0.3 mg kit 0.3 mg intramuscularly once VITAMIN D3 2000 intl units tablet 2 tabs orally once a day OMEPRAZOLE 20 mg delayed release capsule 1 cap(s) orally once a day CHLORTHALIDONE 50 mg tablet 1 tab(s) orally once a day VITAMIN B-12 1000 mcg tablet 1 tab(s) orally once a day AVAPRO 300 mg tablet 1 tab(s) orally once a day CETIRIZINE HYDROCHLORIDE 10 mg tablet 1 tab(s) orally once a day NASAL WASHES N/A 1 quart of sterilized tap water or distilled water, 1 tsp NaCl, 1 pinch of baking soda as directed intranasally as needed FLUTICASONE PROPIONATE 50 mcg/inh spray 2 spray(s) intranasally once a day SIT (TRADITIONAL) variable see record per schedule SC per schedule MONTELUKAST SODIUM 10 mg tablet 1 tab(s) orally once a day MONTELUKAST SODIUM 10 mg tablet 1 tab(s) orally once a day AEROCHAMBER MDI SPACER N/A N/A user with MDI inhalers by mouth q4-6 hours PRN PROAIR HFA CFC free 90 mcg/inh aerosol with adapter 2 puff(s) inhaled QID, PRN AZELASTINE HYDROCHLORIDE NASAL 137 mcg/inh spray 1 spray(s) in each nostril 2 times a day Vitamin D3 50 MCG (2000 UT) Tablet 1 tab(s) orally once a day Omeprazole 20 MG Capsule Delayed Release 1 cap(s) orally once a day Vitamin B-12 1000 MCG Tablet 1 tab(s) orally once a day Avapro 300 MG Tablet 1 tab(s) orally once a day Cetirizine HCl 10 MG Tablet 1 tab(s) orally once a day Fluticasone Propionate 50 MCG/ACT Suspension 2 spray(s) intranasally once a day Rizatriptan Benzoate 5 MG Tablet 1 tab(s) orally once a day Azelastine HCl 137 MCG/SPRAY Solution 1 spray(s) in each nostril 2 times a day Sulfamethoxazole-Trimethoprim 800-160 MG Tablet 1 tab(s) orally every 12 hours Ozempic (0.25 or 0.5 MG/DOSE) , Notes to Pharmacist: *Please review and pick correct strength-formulation from [employer] options. If intended option is not shown, discontinue and re-order from Quick Search*metFORMIN HCl 500 MG Tablet 1 tab(s) orally 2 times a day Losartan Potassium 50 MG Tablet 1 tab(s) orally once a day Fenofibrate 160 MG Tablet 1 tab(s) orally once a day Azelastine HCl 137 MCG/SPRAY Solution 1 spray(s) in each nostril 2 times a day Montelukast Sodium 10 MG Tablet TAKE 1 TABLET BY MOUTH DAILY Albuterol Sulfate HFA 108 (90 Base) MCG/ACT Aerosol Solution 1 puff as needed Inhalation every 4 hrs AeroChamber MV - Miscellaneous use with inhaler Taking EpiPen 2-Lanette 0.3 mg kit 0.3 mg intramuscularly once Taking EpiPen 2-Lanette 0.3 mg kit 0.3 mg intramuscularly once Taking VITAMIN D3 2000 intl units tablet 2 tabs orally once a day Taking OMEPRAZOLE 20 mg delayed release capsule 1 cap(s) orally once a day Taking CHLORTHALIDONE 50 mg tablet 1 tab(s) orally once a day Taking VITAMIN B-12 1000 mcg tablet 1 tab(s) orally once a day Taking AVAPRO 300 mg tablet 1 tab(s) orally once a day Taking CETIRIZINE HYDROCHLORIDE 10 mg tablet 1 tab(s) orally once a day Taking NASAL WASHES N/A 1 quart of sterilized tap water or distilled water, 1 tsp NaCl, 1 pinch of baking soda as directed intranasally as needed Taking FLUTICASONE PROPIONATE 50 mcg/inh spray 2 spray(s) intranasally once a day Taking SIT (TRADITIONAL) variable see record per schedule SC per schedule Taking MONTELUKAST SODIUM 10 mg tablet 1 tab(s) orally once a day Taking MONTELUKAST SODIUM 10 mg tablet 1 tab(s) orally once a day Taking AEROCHAMBER MDI SPACER N/A N/A user with MDI inhalers by mouth q4-6 hours PRN Taking PROAIR HFA CFC free 90 mcg/inh aerosol with adapter 2 puff(s) inhaled QID, PRN Taking AZELASTINE HYDROCHLORIDE NASAL 137 mcg/inh spray 1 spray(s) in each nostril 2 times a day Taking Vitamin D3 50 MCG (2000 UT) Tablet 1 tab(s) orally once a day Taking Omeprazole 20 MG Capsule Delayed Release 1 cap(s) orally once a day Taking Vitamin B-12 1000 MCG Tablet 1 tab(s) orally once a day Taking Avapro 300 MG Tablet 1 tab(s) orally once a day Taking Cetirizine HCl 10 MG Tablet 1 tab(s) orally once a day Taking Fluticasone Propionate 50 MCG/ACT Suspension 2 spray(s) intranasally once a day Taking Rizatriptan Benzoate 5 MG Tablet 1 tab(s) orally once a day Taking Azelastine HCl 137 MCG/SPRAY Solution 1 spray(s) in each nostril 2 times a day Taking Sulfamethoxazole-Trimethoprim 800- 160 MG Tablet 1 tab(s) orally every 12 hours Taking Ozempic (0.25 or 0.5 MG/DOSE) , Notes to Pharmacist: *Please review and pick correct strength-formulation from [employer] options. If intended option is not shown, discontinue and re-order from Quick Search*Taking metFORMIN HCl 500 MG Tablet 1 tab(s) orally 2 times a day Taking Losartan Potassium 50 MG Tablet 1 tab(s) orally once a day Taking Fenofibrate 160 MG Tablet 1 tab(s) orally once a day Taking Azelastine HCl 137 MCG/SPRAY Solution 1 spray(s) in each nostril 2 times a day Taking Montelukast Sodium 10 MG Tablet TAKE 1 TABLET BY MOUTH DAILY Taking Albuterol Sulfate HFA 108 (90 Base) MCG/ACT Aerosol Solution 1 puff as needed Inhalation every 4 hrs Taking AeroChamber MV - Miscellaneous use with inhaler Not-Taking/PRNChlorthalidone 50 MG Tablet 1 tab(s) orally once a day RIZATRIPTAN 5 mg tablet 1 tab(s) orally once a day AZELASTINE NASAL 137 mcg/inh spray 1 spray(s) in each nostril 2 times a day EPIPEN 2-LANETTE 0.3 mg kit 0.3 mg intramuscularly once SULFAMETHOXAZOLE-TRIMETHOPRIM 800 mg-160 mg tablet 1 tab(s) orally every 12 hours OZEMPIC (0.25 MG OR 0.5 MG DOSE) METFORMIN 500 mg tablet 1 tab(s) orally 2 times a day LOSARTAN 50 mg tablet 1 tab(s) orally once a day FENOFIBRATE 160 mg tablet 1 tab(s) orally once a day MONTELUKAST SODIUM 10 mg tablet 1 tab(s) orally once a day OZEMPIC 2 MG/3 ML (0.25 MG OR 0.5 MG DOSE) SOLUTION DIRECTED SUBCUTANEOUSLY ONCE A WEEK , Notes to Pharmacist: *Please review for potential replacement for e-prescription and drug interaction check*PROAIR HFA CFC FREE 90 MCG/INH AEROSOL WITH ADAPTER 2 PUFF(S) INHALED QID, PRN , Notes to Pharmacist: *Please review for potential replacement for e-prescription and drug interaction check*OLOPATADINE HYDROCHLORIDE 665 MCG/INH SPRAY 2 SPRAY(S) INTRANASALLY 2 TIMES A DAY , Notes to Pharmacist: *Please review for potential replacement for e-prescription and drug interaction check*MOMETASONE 100 MCG/INH AEROSOL DIRECTED INHALED 2 TIMES A DAY , Notes to Pharmacist: *Please review for potential replacement for e-prescription and drug interaction check* CONTROL PILL 1 TABLET BY MOUTH DAILY , Notes to Pharmacist: *Please review for potential replacement for e-prescription and drug interaction check*IPRATROPIUM BROMIDE NASAL 42 mcg/inh spray 2 spray(s) intranasally 4 times a day as needed OZEMPIC 8 MG/3 ML (2 MG DOSE) SOLUTION , Notes to Pharmacist: *Please review for potential replacement for e-prescription and drug interaction check*Ipratropium Randolph 0.06 % Solution 2 spray(s) intranasally 4 times a day as needed Not-Taking/PRN Chlorthalidone 50 MG Tablet 1 tab(s) orally once a day Not-Taking/PRN RIZATRIPTAN 5 mg tablet 1 tab(s) orally once a day Not-Taking/PRN AZELASTINE NASAL 137 mcg/inh spray 1 spray(s) in each nostril 2 times a day Not-Taking/PRN EPIPEN 2-LANETTE 0.3 mg kit 0.3 mg intramuscularly once Not-Taking/PRN SULFAMETHOXAZOLE-TRIMETHOPRIM 800 mg-160 mg tablet 1 tab(s) orally every 12 hours Not-Taking/PRN OZEMPIC (0.25 MG OR 0.5 MG DOSE) Not-Taking/PRN METFORMIN 500 mg tablet 1 tab(s) orally 2 times a day Not- Taking/PRN LOSARTAN 50 mg tablet 1 tab(s) orally once a day Not-Taking/PRN FENOFIBRATE 160 mg tablet 1 tab(s) orally once a day Not-Taking/PRN MONTELUKAST SODIUM 10 mg tablet 1 tab(s) orally once a day Not-Taking/PRN OZEMPIC 2 MG/3 ML (0.25 MG OR 0.5 MG DOSE) SOLUTION DIRECTED SUBCUTANEOUSLY ONCE A WEEK , Notes to Pharmacist: *Please review for potential replacement for e-prescription and drug interaction check*Not-Taking/PRN PROAIR HFA CFC FREE 90 MCG/INH AEROSOL WITH ADAPTER 2 PUFF(S) INHALED QID, PRN , Notes to Pharmacist: *Please review for potential replacement for e-prescription and drug interaction check*Not-Taking/PRN OLOPATADINE HYDROCHLORIDE 665 MCG/INH SPRAY 2 SPRAY(S) INTRANASALLY 2 TIMES A DAY , Notes to Pharmacist: *Please review for potential replacement for e-prescription and drug interaction check*Not-Taking/PRN MOMETASONE 100 MCG/INH AEROSOL DIRECTED INHALED 2 TIMES A DAY , Notes to Pharmacist: *Please review for potential replacement for e- prescription and drug interaction check*Not-Taking/PRN CONTROL PILL 1 TABLET BY MOUTH DAILY , Notes to Pharmacist: *Please review for potential replacement for e- prescription and drug interaction check*Not-Taking/PRN IPRATROPIUM BROMIDE NASAL 42 mcg/inh spray 2 spray(s) intranasally 4 times a day as needed Not-Taking/PRN OZEMPIC 8 MG/3 ML (2 MG DOSE) SOLUTION , Notes to Pharmacist: *Please review for potential replacement for e-prescription and drug interaction check*Not-Taking/PRN Ipratropium Randolph 0.06 % Solution 2 spray(s) intranasally 4 times a day as needed Objective: * Vitals: Assessment: * Assessment: 1. A llergic rhinitis due to pollen - J30.1 (Primary) 2 . A llergic rhinitis due to animal (cat) (dog) hair and dander - J30.81 3 . O ther allergic rhinitis - J30.89 4 . O ther chronic allergic conjunctivitis - H10.45 Plan: * Treatment: * Procedure Codes: 9 5117 IMMUNOTHERAPY INJECTIONS * Follow Up: 1 Week * Billing Information: * Visit Code: * Procedure Codes: 25220 IMMUNOTHERAPY INJECTIONS. * INSPECTOR Sign off status: Completed true * Provider: Juan Munoz MD Date: 0 09/12/2024 Generated for Belia hernandez/Luis/Cynthia on: 09/15/2024 04:49 PM BAG INSPECTOR History and Physical Notes * HPI (History of Present Illness) Category Sub-Category Detail Notes Category Not es *Introduction The patient is here for scheduled immunotherapy. Please see the attached specialty form regarding the specifics of the administration of these vaccines. As per our protocol, the must undergo a screening health questionnaire (medication changes, reaction(s) to last immunotherapy dose(s), current health status, ACT (if appropriate), self-injectable epinephrine on patient(?) and peak flow (if appropriate)). Also, the patient must wait in our office for 30 minutes after receiving the vaccine(s). Furthermore, every patient must have an epinephrine pen (self-injectable) with them at the time of administration--and carry if for the following 1.5 hours after they leave our office. The patient must also have taken their antihistamine the day of the injection, preferably 2 hours prior. The consent form for SCIT (subcutaneous immunotherapy) is on file.
--- OUTSIDE RECORDS SUMMARY | 2024-09-15 16:50 | XMS_ITS | Clinical Summary ---
Author Organization [facility] Address [address] [facility] [place] [address] Care Team Providers Care Horticultural Farmworker Name Role Phone Umm Burton MD Primary Care Provider Allergies Active Allergy Reactions Criticality Noted Date Comments Amoxicillin-Pot Clavulanate Rash Medium 01/24/20 16 Lisinopril Angioedema High 07/31/2022 Moxifloxacin Diarrhea Low 07/31/2022 Penicillins Rash Medium Medications BIOTIN ORALIndications: supplement Take 1 tablet by mouth every evening Active calcium polycarbophil (FIBER-TABS ORAL)Indications :supplement Take 2 tablets by mouth every morning Active norethindrone ac-eth estradiol (,) 1-20 mg-mcg per tabletIndication s: Contraception Take 1 tablet by mouth nightly Active cyanocobalamin (Vitamin B-12) 100 mcg tabletIndication s:Prevention of Vitamin B12 Deficiency Take 1 tablet (100 mcg total) by mouth every morning Active cholecalciferol (VITAMIN D-3) 2,000 unit capsuleIndicatio ns:Vitamin D Deficiency Take 1 capsule (2,000 Units total) by mouth every morning Active cetirizine (ZyrTEC) 10 mg tabletIndication s:Allergic Rhinitis Take 1 tablet (10 mg total) by mouth 2 (two) times a day Active PROAIR HFA 90 mcg/actuation inhaler Inhale 2 puffs every 6 (six) hours as needed PRN 0 04/15/20 18 Active OPTICHAMBER [facility] spacer USER WITH MDI INHALERS EVERY 4-6 HOURS NEEDED BY MOUTH 30 DAY(S) 04/19/20 18 Active Lacto.acidophilu s-Bif.animalis 31 billion cell capsuleIndicatio ns:gut health Take 1 capsule by mouth every morning Active montelukast (SINGULAIR) 10 mg tabletIndication s:Maintenance Therapy for Asthma Take 1 tablet (10 mg total) by mouth nightly 07/14/20 19 Active fenofibrate (TRIGLIDE) 160 mg tabletIndication s:hyperlipidemia Take 1 tablet (160 mg total) by mouth nightly 07/17/20 20 Active omeprazole (PriLOSEC) 40 mg capsule Take 1 capsule (40 mg total) by mouth 2 (two) times a day 60 capsule 3 08/18/19 23 Active multivitamin capsuleIndicatio ns:Vitamin Deficiency Prevention Take 1 capsule by mouth every morning Active EPINEPHrine 0.3 mg/0.3 mL auto-injection syringe ADMINISTER 0.3 MG IN THE MUSCLE 1 TIME 08/05/19 24 Active Ozempic 2 mg/dose (8 mg/3 mL) pen injector injectionIndicat ions:type 2 diabetes mellitus Inject 0.75 mL (2 mg total) under the skin every 7 days Thursday Active mometasone furoate, bulk, 100 % powderIndication s:ok to substittute 1 month refill Mix 1.2 mg in nasal rinse bottle and rinse both nostrils twice a day 0.216 g 11/10/19 24 Active sod trktm-rlgpys-jia eez bottle 2,300-700 mg kit Administer 1 spray into each nostril 2 (two) times a day 1 kit 11/12/19 24 Active azelastine (ASTELIN) 137 mcg (0.1 %) nasal spray Administer 1 spray into each nostril 2 (two) times a day Use in each nostril as directed 30 mL 11 12/28/19 24 Active fluticasone propionate (FLONASE) 50 mcg/actuation nasal spray daily Active losartan (COZAAR) 100 mg tablet Take 1 tablet (100 mg total) by mouth daily 05/06/20 24 Active metFORMIN (GLUCOPHAGE) 500 mg tablet Take 1 tablet (500 mg total) by mouth 2 (two) times a day 06/05/20 24 Active sulfamethoxazole -trimethoprim (BACTRIM DS) 800-160 mg per tablet Take 1 tablet by mouth 3 (three) times a week Mon, Wed, Fri 12 tablet 1 08/22/19 25 2024 Active rizatriptan (MAXALT) 5 mg tabletIndication s:Migraine Take 1 tablet (5 mg total) by mouth once as needed for migraine May repeat in 2 hours if unresolved. Do not exceed 3 in 24 hours. 9 tablet 11 08/29/19 25 2025 Active rizatriptan (MAXALT) 5 mg tabletIndication s:Migraine Take 1 tablet (5 mg total) by mouth once as needed for migraine May repeat in 2 hours if unresolved. Do not exceed 3 in 24 hours. 9 tablet 3 11/24/19 24 2024 Discontinued(R eorder) predniSONE (DELTASONE) 10 mg tablet Take 40 mg po for 3 days, 30 mg po for 3 days, then 20 mg po for 3 days, then 10mg po for 3 days. 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 Chronic sphenoidal sinusitis 11/26/2022 Sensorineural hearing loss, bilateral 07/30/2021 Iron deficiency anemia 05/04/2018 RVF (rectovaginal fistula) 02/26/2018 Overview (02/26/2018): Added automatically from request for surgery [id number] Rectovaginal fistula 02/23/2018 Cough 06/16/2016 Dizziness 11/13/2010 Patulous eustachian tube 05/08/2010 Muscle tension dysphonia 11/06/2008 Laryngopharyngeal reflux 11/06/2008 Encounters Date Type Department Care Team Description 08/29/2024 10:00 AM PAPER REEL OPERATOR Telemedicine [facility] [address] [facility] 6th [address] [place] [phone] Loren Holder PA Migraine without aura and without status migrainosus, not intractable (Primary Dx) 08/29/2024 Telephone [facility] [address] [place] [phone] Loren Holder PA Rizatriptan PA 07/04/2024 2:45 PM PAPER REEL OPERATOR Ancillary Procedure [facility] Imaging at [address] [address] Acute left ankle pain 07/04/2024 2:45 PM PAPER REEL OPERATOR Office Visit [facility] at [address] [address] Kaitlyn Smiley NP Acute left ankle pain (Primary Dx); Rib pain on right side 07/04/2024 2:40 PM PAPER REEL OPERATOR Ancillary Procedure [facility] Imaging at [address] [address] Rib pain on right side from Last 3 Months Immunizations Immunization Administration Dates Next Due Influenza, Quadrivalent, Alana l Culture-based MDCK, Antibiotic Free, Intramuscular 05/24/2019 Influenza, Unspecified 04/30/2020,05/04/2018 Pneumococcal Conjugate, Unspecified 07/27/2016 Surgical History Surgery Date Site/Laterality Comments RECTOVAGINAL FISTULA CLOSURE 11/06/2016 Rectovaginal fistula repair RECTOVAGINAL FISTULA CLOSURE 07/24/2016 Rectovaginal fistula repair RECTOVAGINAL FISTULA CLOSURE 01/24/2016 Rectovaginal fistula repair RECTOVAGINAL FISTULA CLOSURE 04/28/2018 1. Rigid proctoscopy 2. Endorectal advancement flap COLONOSCOPY KNEE SURGERY Right tendon release 2012 GANGLION CYST EXCISION bilat wrist 2001, 1997 second surgery SINUS SURGERY December 2022, October 2023 Medical History Medical History Date Comments Hypertension Diabetes (HCC) PONV (postoperative nausea and vomiting) Anemia GERD (gastroesophageal reflux disease) 2006 and 08-11-22 Headache Melanoma (HCC) Family History Medical History Relation Name Comments Diabetes Father Rito Family history of diabetes mellitus - (Added by TW Conv) Hypertension Father Rito Snoring Father Rito Cancer Maternal Grandfather Cancer Mother Danielle Family history of malignant neoplasm - (Added by TW Conv) Diabetes Mother Danielle Family history of diabetes mellitus - (Added by TW Conv) Endometrial cancer Mother Danielle Endometri al cancer - (Added by TW Conv) Hypertension Mother Danielle Snoring Mother Danielle Anesthesia problems Neg Hx Malig Hypertension Neg Hx Malig Hyperthermia Neg Hx Pseudochol deficiency Neg Hx Relation Name Status Comments Father Rito Maternal Grandfather Mother Danielle Social History Tobacco Use Types Packs/Day Years Used Date Smoking Tobacco: Never Smokeless Tobacco: Never Tobacco Cessation:Counseling Given: Not Answered Alcohol Use Standard Drinks/Week Comments Not Currently 0 (1 standard drink = 0.6 oz pur e alcohol) socially 1-2 per month AUDIT-C Answer Date Recorded Q1: How often do you have a drink containing alc ohol? Monthly or less 11/12/2023 Q2: How many drinks containi ng alcohol do you have on a typical day when you are drinking? 1 or 2 11/12/2023 Q3: How often do you have si x or more drinks on one occasion? Never 11/12/2023 Personal Safety Answer Date Recorded Have you ever been in or are you currently in a harmful physical or emotional relationship or is someone making you feel afraid or unsafe? Denies 11/12/2023 Comments No Sex and Gender Information Value Date Recorded Sex Assigned at Not on file Legal Sex Female 5:34 AM PAPER REEL OPERATOR Gender Identity Not on file Sexual Orientation Not on file Occupation Industry Job Start Date Job End Date teacher Not on file Not on file Not on file Obstetrics History Last Filed Vital Signs Vital Sign Reading Time Taken Comments Blood Pressure 134/78 07/04/2024 2:21 PM PAPER REEL OPERATOR Pulse 80 07/04/2024 2:21 PM PAPER REEL OPERATOR Temperature 36.9 C (98.4 F) 07/04/2024 2:21 PM PAPER REEL OPERATOR Respiratory Rate 18 07/04/2024 2:21 PM PAPER REEL OPERATOR Oxygen Saturation 99% 07/04/2024 2:21 PM PAPER REEL OPERATOR Inhaled Oxygen Concentration - - Weight 103.9 kg (229 lb) 07/04/2024 2:21 PM PAPER REEL OPERATOR Height 172.7 cm (5' 8 ) 07/04/2024 2:21 PM PAPER REEL OPERATOR Body Mass Index 34.82 07/04/2024 2:21 PM PAPER REEL OPERATOR Plan of Treatment Health Maintenance Due Date Last Done Comments Breast Cancer Screening-Mammogram 1975 Cervical Cancer Screening 1975 Colon Cancer Screening-Colonoscopy 1975 Depression Screening 1975 Hepatitis C Screening 1975 DTaP/Tdap/Td Vaccine (1 - Tdap) 1986 Hepatitis B Screening 1993 Regular Well Visit/Exam 18-64 1993 Influenza Vaccine (#1) 2024 4, 04/30/2020, 05/24/2019, Additional history exists Pneumococcal vaccine <65 Aged Out 07/27/2016 No longer eligible based on patient's age to complete this topic Procedures Procedure Name Priority Date/Time Associated Diagnosis Comments XR RIBS RIGHT W PA CHEST Schedule OLINDA, Read OLINDA (Appt Today, Awaiting Results) 07/04/2024 2:46 PM PAPER REEL OPERATOR Rib pain on right side XR ANKLE LEFT 3 OR MORE VIEWS Schedule OLINDA, Read OLINDA (Appt Today, Awaiting Results) 07/04/2024 2:45 PM PAPER REEL OPERATOR Acute left ankle pain from Last 3 Months Results * XR Ribs Right W PA Chest 3 or More Views (07/04/2024 2:46 PM PAPER REEL OPERATOR) Anatomical Region Laterality Modality Rib, Chest Right Digital Radiogra phy 07/04/2024 3:33 PM PAPER REEL OPERATOR Narrative 07/04/2024 3:37 PM PAPER REEL OPERATOR EXAM DESCRIPTION: XR RIBS RIGHT W PA CHEST REASON FOR STUDY: pain Pt complains of lateral rib pain, also under right breast pain after twisting her left ankle and falling onto her right side Thursday. No surgery to heart, lungs, chest, or ankle. Non-smoker. Pt complains of generalized ankle pain. TECHNIQUE: Single frontal view of the chest and two views of the right ribs. COMPARISON: None available FINDINGS: LUNGS/PLEURA: No focal consolidation or pleural effusion. No pneumothorax. HEART/MEDIASTINUM: Normal heart size and mediastinal contour. HARDWARE/LINES/TUBES: None. BONES: There is no displaced rib fracture seen. IMPRESSION: No acute cardiopulmonary abnormality or displaced rib fracture. THIS IS AN ELECTRONICALLY VERIFIED FINAL REPORT 07/04/2024 3:37 PM - Electronically signed by Berry Torres M.D. AG T: Report ID: [id number] Reading Location: [id number] Procedure Note Berry Torres MD - 07/04/2024 EXAM DESCRIPTION: XR RIBS RIGHT W PA CHEST REASON FOR STUDY: pain Pt complains of lateral rib pain, also under right breast pain aftertwisting her left ankle and falling onto her right side Thursday. No surgery toheart, lungs, chest, or ankle. Non-smoker. Pt complains of generalized anklepain. TECHNIQUE: Single frontal view of the chest and two views of the right ribs. COMPARISON: None available FINDINGS: LUNGS/PLEURA: No focal consolidation or pleural effusion. No pneumothorax. HEART/MEDIASTINUM: Normal heart size and mediastinal contour. HARDWARE/LINES/TUBES: None. BONES: There is no displaced rib fracture seen. IMPRESSION: No acute cardiopulmonary abnormality or displaced rib fracture. THIS IS AN ELECTRONICALLY VERIFIED FINAL REPORT 07/04/2024 3:37 PM - Electronically signed by Berry Torres M.D. AG T: Report ID: [id number] Reading Location: [id number] Kaitlyn Smiley NP IMG XR PROCEDURES Final Result * XR Ankle Left 3+ Vw (07/04/2024 2:45 PM PAPER REEL OPERATOR) Anatomical Region Laterality Modality Lower Extremities, Ankle Left Digital Radiography 07/04/2024 3:28 PM PAPER REEL OPERATOR Narrative 07/04/2024 3:33 PM PAPER REEL OPERATOR EXAM DESCRIPTION: XR ANKLE LEFT 3 OR MORE VIEWS REASON FOR STUDY: pain Pt complains of lateral rib pain, also under right breast pain after twisting her left ankle and falling onto her right side Thursday. No surgery to heart, lungs, chest, or ankle. Non-smoker. Pt complains of generalized ankle pain. TECHNIQUE: 3 radiographic view(s) of the left ankle . COMPARISON: None available FINDINGS: BONES/JOINTS: No acute fracture or malalignment. Symmetric ankle mortise. Tiny well corticated calcification adjacent to the medial malleolus and minimal osseous spurring along the distal fibula could reflect minimal degenerative change or chronic injury. Calcaneal bone spur. SOFT TISSUES: Unremarkable. IMPRESSION: No acute osseous abnormality. THIS IS AN ELECTRONICALLY VERIFIED FINAL REPORT 07/04/2024 3:33 PM - Electronically signed by Berry Torres M.D. AG T: Report ID: [id number] Reading Location: [id number] Procedure Note Berry Torres MD - 07/04/2024 EXAM DESCRIPTION: XR ANKLE LEFT 3 OR MORE VIEWS REASON FOR STUDY: pain Pt complains of lateral rib pain, also under right breast pain aftertwisting her left ankle and falling onto her right side Thursday. No surgery toheart, lungs, chest, or ankle. Non-smoker. Pt complains of generalized anklepain. TECHNIQUE: 3 radiographic view(s) of the left ankle . COMPARISON: None available FINDINGS: BONES/JOINTS: No acute fracture or malalignment. Symmetric ankle mortise. Tiny well corticated calcification adjacent to the medialmalleolus and minimal osseous spurring along the distal fibula could reflect minimal degenerative change or chronic injury. Calcaneal bone spur. SOFT TISSUES: Unremarkable. IMPRESSION: No acute osseous abnormality. THIS IS AN ELECTRONICALLY VERIFIED FINAL REPORT 07/04/2024 3:33 PM - Electronically signed by Berry Torres M.D. AG T: Report ID: [id number] Reading Location: [id number] Kaitlyn Smiley NP IMG XR PROCEDURES Final Result from Last 3 Months Insurance [facility] ACCESS CHOICE ANTHEM ACCESS CHOICE Advance Directives For more information, please contact: [phone] Documents on File Type Date Recorded Patient Manager Stone Expl anation ADVANCE DIRECTIVE 01/20/2023 6:44 PM POWER OF SLAG DUMPER-MEDICAL * Full Code (Latest Code Status on File) Date Activated Date Inactivated Comments 04/28/2018 1:24 PM 04/29/2018 7:09 PM Care Teams Horticultural Farmworker Relationship Specialty Start Date End Date Umm Burton MD PCP - General Family Medicine 08/03/20
--- OUTSIDE RECORDS SUMMARY | 2024-09-15 16:50 | XMS_ITS ---
Author Organization [facility] Address [address] [place] [address] Care Team Providers Care Employment Training Specialist Name Role Phone Umm Burton Primary Care Provider Lucy Ang [phone] REASON FOR VISIT Refills Medications Medication SIG (Take, Route, Frequency, Duration) Notes Start Date End Date Status AeroChamber MV - use with inhaler for 30 days 09/06/2024 Active Albuterol Sulfate HFA 108 (90 Base) MCG/ACT 1 puff as needed Inhalation every 4 hrs for 30 days Active Encounters Encounter Location Date Provider Diagnosis [address] [address] 09/06/2024 Lucy Welch Plan Of Treatment Medication Medication Name Sig Start Date Stop Date Notes AeroChamber MV - use with inhaler for 30 days 09/06/2024 Albuterol Sulfate HFA 108 (9 0 Base) MCG/ACT 1 puff as needed Inhalation every 4 hrs for 30 days Next Appt Details Provider Name:Vinod Munoz , 09/19/2024 04:40:00 PM, [address] [employer], [address], [address], Provider Name:Vinod Munoz , 09/27/2024 04:40:00 PM, [address] [employer], [address], [address], Provider Name:Cuco liao, 01/12/2025 10:00:00 AM, [address] [facility], [address], [place], [address], Progress Notes * Umm WILKERSON SDOB:1975 (49 yo F)Acc No.[id number]:09/06/2024 Patient: Umm HOPSON :1975 A ge:49 Y S ex:Female Address:[facility] [address], [place], [address] * Refills Refill Albuterol Sulfate HFA Aerosol Solution, 108 (90 Base) MCG/ACT, Inhalation, 1, 1 puff as needed, every 4 hrs, 30 days, Refills=3 Start AeroChamber MV Miscellaneous, -, 1, use with inhaler, 30 days, Refills=5 * true * Date: Generated for Belia hernandez/Luis/Esteritting on: 0 09/15/2024 04:49 PM CONSUMER STUDIES PROFESSOR
--- OUTSIDE RECORDS SUMMARY | 2024-09-15 16:50 | XMS_ITS | Referral Summary ---
Author Organization [facility] Address [address] [place] [address] Care Team Providers Care Gas Maker Name Role Phone Umm Burton MD Primary Care Provider Encounters Date Type Department Care Team Description 08/29/2024 Telephone [facility] [address] [facility] [facility] 6th [address] [place] [phone] Loren Holder PA Rizatriptan PA 08/29/2024 10:00 AM ASSISTANT DIRECTOR OF RESIDENCE LIFE Telemedicine [facility] Neurology [address] [place] [phone] Loren Holder PA Migraine without aura and without status migrainosus, not intractable (Primary Dx) 07/04/2024 2:45 PM ASSISTANT DIRECTOR OF RESIDENCE LIFE Ancillary Procedure [facility] Imaging at [address] [address] Acute left ankle pain 07/04/2024 2:40 PM ASSISTANT DIRECTOR OF RESIDENCE LIFE Ancillary Procedure [facility] Imaging at [address] [address] Rib pain on right side 07/04/2024 2:45 PM ASSISTANT DIRECTOR OF RESIDENCE LIFE Office Visit [facility] Care at [address] [address] Kaitlyn Smiley NP Acute left ankle pain (Primary Dx); Rib pain on right side from Last 3 Months Allergies Active Allergy Reactions Criticality Noted Date Comments Amoxicillin-Pot Clavulanate Rash Medium 01/24/20 16 Lisinopril Angioedema High 07/31/2022 Moxifloxacin Diarrhea Low 07/31/2022 Penicillins Rash Medium Medications BIOTIN ORALIndications: supplement Take 1 tablet by mouth every evening Active calcium polycarbophil (FIBER-TABS ORAL)Indications :supplement Take 2 tablets by mouth every morning Active norethindrone ac-eth estradiol (08/15, ,) 1-20 mg-mcg per tabletIndication s: Contraception Take [...] as needed PRN 0 04/15/20 18 Active TINO CESAR [facility] spacer USER WITH MDI INHALERS EVERY 4-6 [...] day 0.216 g 11/10/19 24 Active sod hoxuo-nwahke-iqi eez bottle 2,300-700 mg kit Administer 1 spray into each nostril 2 (two) times a day 1 kit 11/12/19 24 Active azelastine (ASTELIN) 137 mcg (0.1 %) nasal spray Administer 1 spray into each nostril 2 (two) times a day Use in each nostril as directed 30 mL 12/28/19 24 Active fluticasone propionate (FLONASE) 50 [...] (02/26/2018): Added automatically from request for surgery [id number] Rectovaginal fistula 02/23/2018 Cough 06/16/2016 Dizziness 11/13/2010 Patulous eustachian tube 05/08/2010 Muscle tension dysphonia 11/06/2008 Laryngopharyngeal reflux 11/06/2008 Immunizations Immunization Administration Dates Next Due Influenza, Quadrivalent, Alana l Culture-based MDCK, Antibiotic Free, Intramuscular 05/24/2019 Influenza, Unspecified 04/30/2020,05/04/2018 Pneumococcal Conjugate, Unspecified 07/27/2016 Social History Tobacco Use Types Packs/Day Years [...] on file Legal Sex Female 5:34 AM ASSISTANT DIRECTOR OF RESIDENCE LIFE Gender Identity Not on file Sexual Orientation Not on file Occupation Industry Job Start Date Job End Date teacher Not on file Not on file Not on file Last Filed Vital Signs Vital Sign Reading Time Taken Comments Blood Pressure 134/78 07/04/2024 2:21 PM ASSISTANT DIRECTOR OF RESIDENCE LIFE Pulse 80 07/04/2024 2:21 PM ASSISTANT DIRECTOR OF RESIDENCE LIFE Temperature 36.9 C (98.4 F) 07/04/2024 2:21 PM ASSISTANT DIRECTOR OF RESIDENCE LIFE Respiratory Rate 18 07/04/2024 2:21 PM ASSISTANT DIRECTOR OF RESIDENCE LIFE Oxygen Saturation 99% 07/04/2024 2:21 PM ASSISTANT DIRECTOR OF RESIDENCE LIFE Inhaled Oxygen Concentration - - Weight 103.9 kg (229 lb) 07/04/2024 2:21 PM ASSISTANT DIRECTOR OF RESIDENCE LIFE Height 172.7 cm (5' 8 ) 07/04/2024 2:21 PM ASSISTANT DIRECTOR OF RESIDENCE LIFE Body Mass Index 34.82 07/04/2024 2:21 PM ASSISTANT DIRECTOR OF RESIDENCE LIFE Plan of Treatment Not on file Procedures Procedure Name Priority Date/Time Associated Diagnosis Comments XR RIBS RIGHT W PA CHEST Schedule OLINDA, Read OLINDA (Appt Today, Awaiting Results) 07/04/2024 2:46 PM ASSISTANT DIRECTOR OF RESIDENCE LIFE Rib pain on right side XR ANKLE LEFT 3 OR MORE VIEWS Schedule OLINDA, Read OLINDA (Appt Today, Awaiting Results) 07/04/2024 2:45 PM ASSISTANT DIRECTOR OF RESIDENCE LIFE Acute left ankle pain from Last 3 Months Results * XR Ribs Right W PA Chest 3 or More Views (07/04/2024 2:46 PM ASSISTANT DIRECTOR OF RESIDENCE LIFE) Anatomical Region Laterality Modality Rib, Chest Right Digital Radiogra phy 07/04/2024 3:33 PM ASSISTANT DIRECTOR OF RESIDENCE LIFE Narrative 07/04/2024 3:37 PM ASSISTANT DIRECTOR OF RESIDENCE LIFE EXAM DESCRIPTION: XR RIBS RIGHT W PA [...] Berry Torres M.D. AG T: Report ID: [id number] Reading Location: [id number] Procedure Note Berry Torres MD - 07/04/2024 [...] Berry Torres M.D. AG T: Report ID: [id number] Reading Location: [id number] Kaitlyn Smiley NP IMG XR PROCEDURES Final Result * XR Ankle Left 3+ Vw (07/04/2024 2:45 PM ASSISTANT DIRECTOR OF RESIDENCE LIFE) Anatomical Region Laterality Modality Lower Extremities, Ankle Left Digital Radiography 07/04/2024 3:28 PM ASSISTANT DIRECTOR OF RESIDENCE LIFE Narrative 07/04/2024 3:33 PM ASSISTANT DIRECTOR OF RESIDENCE LIFE EXAM DESCRIPTION: XR ANKLE LEFT 3 OR [...] Berry Torres M.D. AG T: Report ID: [id number] Reading Location: [id number] Procedure Note Berry Torres MD - 07/04/2024 [...] Berry Torres M.D. AG T: Report ID: [id number] Reading Location: [id number] Kaitlyn Smiley BEFORE SCHOOL BABYSITTER IMG XR PROCEDURES Final Result from Last 3 Months Insurance invi [employer] CHOICE Advance Directives For more information, please contact: [phone] Documents on File Type Date Recorded Patient Cross Tie Cutter Expl anation ADVANCE DIRECTIVE 01/20/2023 6:44 PM POWER OF DESIGN PAINTER-MEDICAL * Full Code (Latest Code Status on File) Date Activated Date Inactivated Comments 04/28/2018 1:24 PM 04/29/2018 7:09 PM Care Teams Gas Maker Relationship Specialty Start Date End Date Umm Burton MD PCP - General Family Medicine 08/03/20
== END 2024-09-15 16:43 | disposition home or self-care (01) ==
PROVIDERS: PCP Family Medicine; Visit Provider Student in an Organized Health Care Education/Training Program
DX: R06.00 Dyspnea, unspecified (principal)
CPT/HCPCS: 71046

== ENCOUNTER 2025-07-13 16:21 | Outpatient (CLI) | payer BC, SELFPAY ==
--- NOTE | ~2025-07-13 | MM_ITS ---
EXAMINATION: MM screening romani BI w lupillo HISTORY: Screening TECHNIQUE: Craniocaudal and mediolateral oblique 3-D tomosynthesis images were obtained and synthetic 2-D images were generated. CAD analysis was submitted and interpreted. COMPARISON: Comparison to multiple prior studies sequentially, with oldest reviewed study dated 10/23/2017. BREAST PARENCHYMAL COMPOSITION: Not Dense: The breasts are almost entirely fatty. FINDINGS: There is no evidence of suspicious mass, calcification, or architectural distortion to suggest malignancy in either breast. There has been no suspicious interval change. IMPRESSION: 1. No mammographic evidence of malignancy. 2. Recommend routine screening mammography in one year. BI-RADS Category 1: Negative Reviewed, dictated and finalized at location O. REL SALES LEADER
== END 2025-07-13 16:22 | disposition home or self-care (01) ==
LOC: ANHFOHIMG 16:23
PROVIDERS: PCP Student in an Organized Health Care Education/Training Program; Visit Provider Obstetrics & Gynecology Gynecology
DX: Z12.31 Encounter for screening mammogram for malignant neoplasm of breast (principal)
CPT/HCPCS: 77063; 77067